=== PATIENT | female | born 1965 ===

== ENCOUNTER 2024-09-08 15:30 | Outpatient (REF) | payer BC, SELFPAY ==
--- OUTSIDE RECORDS SUMMARY | 2024-09-08 15:32 | XMS_ITS | Encounter Summary ---
Author Organization [facility] Address [address] [place] [address] Care Team Providers Care Farm Technician Name Role Phone Ed Willson APRN Primary Care Provider [phone] Reason for Visit * Reason Onset Date Comments Orders (Non Pre-visit) 10/14/2023 Encounter Details Date Type Department Care Team (Late st Contact Info) Description 10/14/2023 Telephone [facility] Endocrinology - [address] [address] Justin Alvarado MD [address] [place] [phone] Orders (Non Pre-visit) Social History Tobacco Use Types Packs/Day Years Used Date Smoking Tobacco: Never Smokeless Tobacco: Never Comments Unknown Sex and Gender Information Value Date Recorded Sex Assigned at Not on file Legal Sex Female 18:48 EST Gender Identity Female 10/13/2023 11:04 EST Sexual Orientation Not on file documented as of this encounter Functional Status * Because of a physical, mental, or emotional condition, does this person have difficulty doing errands alone such as visiting a doctor's office or shopping? Answer Date of Assessment Author No 10/13/2023 15:53 EST documented as of this encounter Mental Status * Because of a physical, mental, or emotional condition, does this person have serious difficulty concentrating, remembering, or making decisions? Answer Entry Date Author No 10/13/2023 15:53 EST documented in this encounter Miscellaneous Notes * Telephone Encounter - Mary Jane Robertson RN - 10/22/2023 0848 EDT SW patient to relay - Dr. Alvarado reviewed thyroid imaging patient had done last year - Patient does not need a repeat ultrasound done this year. - Patient can discuss with primary care physician and consider repeating in 2 years from last ultrasound. - No need to follow up with Dr. Alvarado at this time. Patient v/u and agreed to plan. MARY JANE ROBERTSON RN 10/22/2023 8:53 * Telephone Encounter - Mary Jane Robertson RN - 10/22/2023 0833 EDT Images from the original note were not included. Call to [facility] radiology. No answer. Left VM canceling order for thyroid U/S Dr. Alvarado had ordered. Call back number provided. [facility] 10/22/23 Plan: - Thyroid US - TSH, FT4 today - Follow up with primary care - I will chart check for results. Will follow-up if further workup is needed. Otherwise will discharge back to primary care provider. After careful review of the patient???s history under my care and discussion with the patient, we decided that Denise Best no longer requires routine follow up care in this office. If the patienthas worsening of symptoms, please reach out directly to me, or in my absence, to one of my colleagues. My recommendations are: Treatment Plan: If TSH is high, consideration for treatment with levothyroxine and monitoring TSH, target within normal range; will decide after reviewing labs. Will contact patient if any evidence of thyroid disorder. Call to patient. No answer. No ID. LMTCB When patient calls back: - Dr. Alvarado reviewed thyroid imaging patient had done last year - Patient does not need a repeat ultrasound done this year. - Patient can discuss with primary care physician and consider repeating in 2 years from last ultrasound. - No need to follow up with Dr. Alvarado at this time. MARY JANE ROBERTSON RN 10/22/2023 8:38 * Telephone Encounter - Mary Jane Robertson RN - 10/16/2023 1506 EST Animal Biologist not able to locate records from imaging done of thyroid last year. [facility] imaging department images and report from thyroid imaging done last year at [facility] will be sent to the hospital library and then when it is uploaded endo will be able to view it on [employer]. Routing to MANDY ruiz and Dr. Alvarado. MARY JANE ROBERTSON RN 10/16/2023 15:09 * Telephone Encounter - Keisha Dewey - 10/16/2023 1400 EST [facility] Imaging Dept calling again. Please see previous note below. * Telephone Encounter - Missy Blanchard - 10/14/2023 1136 EST [facility] states an order for thyroid ultrasound was received stating ultrasound not done in years. [place] states patient had thyroid ultrasound and CT scan done last year at [facility]. Does Dr. Alvarado still want to a new thyroid ultrasound. documented in this encounter Plan of Treatment Not on file documented as of this encounter Visit Diagnoses Not on filedocumented in this encounter Care Teams Farm Technician Relationship Specialty Start Date End Date Ed Willson APRN [address] [place] [address] [address] [place] [address] PCP - General 10/13/23 documented as of this encounter
--- OUTSIDE RECORDS SUMMARY | 2024-09-08 15:32 | XMS_ITS | Encounter Summary ---
Author Organization [facility] [place] [address] Care Team Providers Care Residential Sales Consultant Name Role Phone AnamikaEd SUZANNE Primary Care Provider [phone] Reason for Visit * Reason Comments Thyroid Nodule Encounter Details Date Type Department Care Team (Late st Contact Info) Description 08/29/2011 9:00 AM EST Office [place] [phone] Rafael Stevens MD Thyroid nodule; Neck pain Discharge Disposition: Home Social History Tobacco Use Types Packs/Day Years Used Date Smoking Tobacco: Never Sex and Gender Information Value Date Recorded Sex Assigned at Not on file Gender Identity Not on file Sexual Orientation Not on file documented as of this encounter Progress Notes * Rafael Stevens MD - 08/29/2011 9:59 AM EST Patient seen in consultation at the request of: Ed Willson NP Reason for consult: Thyroid nodule Denise Best is a very pleasant 46 y.o. year old female who has been complaining of about 3 - 4 months of bilateral neck achiness and tenderness. She indicates the course of her bilateral sternocleidomastoids from about level III to the mastoid when describing her symptom. As part of the evaluation of this, a neck ultrasound was obtained and this revealed a small, vascular nodule. Apparently the virtual radiologist suggested an FNA, but the local radiologist wanted instead to observe it. She has no prior history of thyroid disease. History of H+N XRT exposure: No Family history of thyroid cancer: No Thyroid Compressive symptoms: Globus sensation: No Dysphagia: No Dysphonia: No Dyspnea: No Symptoms of thyroid hormone excess / deficiency Heat intolerance: No Cold intolerance: No Diarrhea: No Constipation: No Weight loss / gain: No Anxiety: No Jitteriness: No Temors: No Palpitations: No Difficulty concentrating: No TSH 0.63 Patient Active Problem List Diagnoses Code ??? Thyroid nodule 241.0B ??? 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 All other systems negative. Physical Exam GEN: A+O 3; WDWN; Comfortable; Mood and affect appropriate. EYES: SIERRA; No stare, no lid lag, no conjunctival injection NECK: Trachea midline, no neck masses; Thyroid not enlarged; Non-nodular; Thyroid is not tender; There is no cervical lymphadenopathy CHEST: Clear to auscultation; No dullness to percussion CV: Regular rate and rhythm; No murmurs rubs or gallops; no peripheral edema ABD: Soft and non-tender; No masses notes MSK: Normal gait and station; No clubbing or cyanosis of digits SKIN: Intact without lesions or rashes NEURO: CN II-XII grossly intact with normal coordination, muscle strength and tone; No tremor of outstretched hands; DTRs 1+ w/ normal relaxation phase THYROID ULTRASOUND: Indication: Thyroid nodule on prior study; Considering FNA - clarify size, position and US characteristics Date: 08/29/2011 Comparison: Real time images of the thyroid gland were obtained using a [employer] TV[employer] and an HFL38/13-6 broadband linear array transducer. Right Lobe: The right lobe is of normal size and echotexture. Left Lobe: The left lobe is of normal size and echotexture. There are two small hypoechoic nodules abutting one another in the medial midlobe. Together, the give the impression (in some imaging planes) of being a single, larger nodule. From superior to inferior: - 0.24x0.3x0.45cm - 0.4x0.5x0.66cm. This nodule is moderately vascular There are no intranodular calcifications in either nodule ASSESSMENT / PLAN: 1. Thyroid Nodule Two subcentimeter nodules. One is vascular, but otherwise there are no high risk US features. I discussed with her the prevalence of thyroid nodules: Approximately 5% of individuals have palpable thyroid nodules and 30% or more of adults have non- palpable nodules. The prevalence of nodules increases with age, so that perhaps 50% of individuals older than 60 years of age have nodules. Many of these nodules will be well under 1cm in size. The incidence of thyroid cancer is low, but rising. About 44,700 individuals will be found to have thyroid cancer in 2009. The prevalence of thyroid cancer is low compared with the prevalence of thyroid nodule. In 2007, there were about 434,000 individuals in the [place] with a history of thyroid cancer. There have been a number of studies that have estimated risk of malignancy in thyroid nodule. The estimated risk varies with size and other characteristics of nodules selected for biopsy, the technique used for the biopsy, the institution and its referral patterns, and the characteristics of the local population. Most studies have estimated malignancy risk in nodules that are palpable or > 1cmon U/S to be in the range of 3-15%. At [facility], the nodules selected for biopsy are histologically positive in about 7% of cases. In general, options for further evaluation include: - Follow with serial U/S - Fine needle aspiration biopsy - Thyroidectomy At [facility], our criteria for FNA biopsy includes: - All palpable nodules - All nodules > 1cm in two or more dimension - Nodules > 8-9mm in two or more dimensions with high risk sonographic features, or occuring in patients with high risk historical features - Nodules that have been previously biopsied and found to have benign cytology but which have subsequently enlarged or changed significantly - Simple cysts do not require FNA biopsy Nodules not meeting the above criteria can generally be followed with ultrasound. Her nodule(s) do not meet the above criteria. I therefore concur that observation is a reasonable, and probably, best option. Plan: She will f/u with me in 1 year for a repeat US. In the event of significant growth of the vascular nodule, we will do an FNA. 2. Neck Pain Her neck pain is lateral - along the course of the bilateral SCMs - not particularly close to her thyroid. Her thyroid is not tender, not is there any sonographic changes in the thyroid parenchyma c/w subacute thyroiditis. In addition, she is euthyroid. Her neck pain is probably myofascial in nature and is certainly unrelated to her thyroid. . documented in this encounter Plan of Treatment Upcoming Encounters Date Type Department Care Team (Late st Contact Info) Description 09/22/2024 8:20 AM EST Office Visit Dermatology at [facility] [address] [place] [address] documented as of this encounter Visit Diagnoses Diagnosis Thyroid nodule Nontoxic uninodular goiter Neck pain Cervicalgia documented in this encounter Care Teams Residential Sales Consultant Relationship Specialty Start Date End Date Ed Willson APRN [address] [place] [address] [place] [phone] PCP - General 08/20/11 documented as of this encounter
--- OUTSIDE RECORDS SUMMARY | 2024-09-08 15:32 | XMS_ITS | Encounter Summary ---
Author Organization [facility] Address [address] [place] [address] Care Team Providers Care Investment Manager Name Role Phone Unknown, Provider Primary Care Provider Ed Yin APRN Primary Care Provider [phone] Reason for Visit * Reason Onset Date Comments Appointment Related 07/16/2023 Encounter Details Date Type Department Care Team (Late st Contact Info) Description 07/16/2023 Telephone [facility] Endocrinology - [facility] [address] [place], [place] [id number] Lincoln Ding MD [address] [place] [address] Appointment Related Social History Tobacco Use Types Packs/Day Years Used Date Smoking Tobacco: Never Assessed Comments Unknown Sex and Gender Information Value Date Recorded Sex Assigned at Not on file Legal Sex Female 18:48 EST Gender Identity Female 10/13/2023 11:04 EST Sexual Orientation Not on file documented as of this encounter Miscellaneous Notes * Telephone Encounter - Lucinda Mahajan - 07/16/2023 1124 EST Left voicemail to reschedule 08-14-[address] Ding due to the provider having surgery. PASC: Please reschedule for next available NPV with a Thyroid provider, NPV guidelines. documented in this encounter Plan of Treatment Not on file documented as of this encounter Visit Diagnoses Not on filedocumented in this encounter Care Teams Investment Manager Relationship Specialty Start Date End Date Unknown, Provider, PCP - General 11/15/09 10/12/23 Ed Willson APRN [address] [place] [address] [address] [place] [address] PCP - General 10/13/23 documented as of this encounter
--- OUTSIDE RECORDS SUMMARY | 2024-09-08 15:32 | XMS_ITS | Encounter Summary ---
Author Organization [facility] Address [address] [place] [address] Care Team Providers Care Carpenter Refrigerator Name Role Phone Ed Willson APRN Primary Care Provider [phone] Reason for Visit * Reason Onset Date Comments Erroneous Encounter 12/18/2023 Encounter Details Date Type Department Care Team (Late st Contact Info) Description 12/18/2023 Telephone [facility] [address] [place], [place] [phone] None, Provider Erroneous Encounter Social History Tobacco Use Types Packs/Day Years [...] 10/13/2023 15:53 EST documented in this encounter Plan of Treatment Not on file documented as of this encounter Visit Diagnoses Not on filedocumented in this encounter Care Teams Carpenter Refrigerator Relationship Specialty Start Date End Date Ed Willson APRN [address] [place] [address] [address] [place] [address] PCP - General 10/13/23 documented as of this encounter
--- OUTSIDE RECORDS SUMMARY | 2024-09-08 15:32 | XMS_ITS | Encounter Summary ---
Author Organization [facility] Address [address] [place] [address] Care Team Providers Care Yoga Instructor Name Role Phone Unknown, Provider Primary Care Provider Unava ilable Reason for Referral * (Routine/Next Available) - Receiving Office to Obtain Authorization Specialty Diagnoses / Procedures Referred By Contac t Referred To Contact Procedures CT OUTSIDE IMAGES NECK Unknown, Provider, Referral ID Status Reason Start Date Expiration Date Visits Requested Visits Authorized [id number] Receiving Office to Obtain Authorization 10/21/2023 1 1 Reason for Visit * (Routine/Next Available) - Receiving Office to Obtain Authorization Specialty Diagnoses / Procedures Referred By Contac t Referred To Contact Procedures CT OUTSIDE IMAGES NECK Unknown, Provider, Referral ID Status Reason Start Date Expiration Date Visits Requested Visits Authorized [id number] Receiving Office to Obtain Authorization 10/21/2023 1 1 Encounter Details Date Type Department Care Team (Latest Contact Info) Description 02/10/2023 - 02/10/2023 23:59 EDT Hospital Encounter [facility] [place] Discharge Disposition: Home or Self Care Social History Tobacco Use Types Packs/Day Years Used Date Smoking Tobacco: Never Assessed Comments Unknown Sex and Gender Information Value Date Recorded Sex Assigned at Not on file Legal Sex Female 18:48 EST Gender Identity Female 10/13/2023 11:04 EST Sexual Orientation Not on file documented as of this encounter Medications at Time of Discharge LORazepam (ATIVAN) 0.5 mg tablet Take 1 Tablet by mouth every 8 hours as needed for Anxiety. 10/26/2022 documented as of this encounter Discharge Disposition Disposition Code Departure Means Destination Home or Self Care documented in this encounter Plan of Treatment Not on file documented as of this encounter Procedures Procedure Name Priority Date/Time Associated Diagnosis Comments CT OUTSIDE IMAGES NECK Routine 02/10/2023 15:31 EDT documented in this encounter Results * CT OUTSIDE IMAGES NECK (02/10/2023 15:31 EDT) Narrative 10/21/2023 15:31 EDT This is a non-reportable exam. us Provider Unknown IMTeri OTHER IMAGING ORDERABLES Final Result documented in this encounter Visit Diagnoses Not on filedocumented in this encounter Care Teams Yoga Instructor Relationship Specialty Start Date End Date Unknown, Provider, PCP - General 11/15/09 10/12/23 documented as of this encounter
--- OUTSIDE RECORDS SUMMARY | 2024-09-08 15:32 | XMS_ITS | Encounter Summary ---
Author Organization [facility] Address [address] [place] [address] Care Team Providers Care Cash Specialist Name Role Phone Ed Willson APRN Primary Care Provider Reason for Referral * Radiology Services (Routine/Next Available) - Specialty Report Received Specialty Diagnoses / Procedures Referred By Chela huizar Referred To Contact Diagnoses Thyroid nodule Procedures US THYROID/NECK US THYROID/NECK Yair Rodríguez MD Referral ID Status Reason Start Date Expiration Date V isits Requested Visits Authorized [id number] Specialty Report Received 10/13/2023 1 1 Reason for Visit * Reason Comments Other NPV - abnormal findi ngs of blood chemistry * Referral (Routine) - Receiving Office to Obtain Authorization Specialty Diagnoses / Procedures Referred By Chela huizar Referred To Contact Endocrinology Diagnoses Other specified abnormal findings of blood chemistry Ed Willson APRN [address] [place] [address] [address] [place] [address] Phone: tel: fax: [address] [address] Phone: tel: fax: Referral ID Status Reason Start Date Expiration Date Visits Requested Visits Authorized [id number] Receiving Office to Obtain Authorization 1 1 Encounter Details Date Type Department Care Team (Latest Contact Info) Description 10/13/2023 16:00 EST Office Visit [address] [address] Justin Alvarado MD [address] [place] [phone] Thyroid nodule (Primary Dx) Social History Tobacco Use Types Packs/Day Years Used Date Smoking Tobacco: Never Smokeless Tobacco: Never Comments Unknown Sex and Gender Information Value Date Recorded Sex Assigned at Not on file Legal Sex Female 18:48 EST Gender Identity Female 10/13/2023 11:04 EST Sexual Orientation Not on file documented as of this encounter Last Filed Vital Signs Vital Sign Reading Time Taken Comments Blood Pressure 119/79 10/13/2023 1557 EST Pulse 87 10/13/2023 1557 EST Temperature - - Respiratory Rate - - Oxygen Saturation - - Inhaled Oxygen Concentration - - Weight 84.8 kg (186 lb 14.4 oz) 10/13/2023 1557 EST Height 177.8 cm (5' 10) 10/13/2023 1557 EST Body Mass Index 26.82 10/13/2023 1557 EST documented in this encounter Functional Status * Because of [...] 10/13/2023 15:53 EST documented in this encounter Patient Instructions * Patient Instructions* Justin Alvarado MD - 10/13/2023 16:00 EST - Thyroid US - TSH, FT4 today - Follow up with primary care documented in this encounter Progress Notes * Justin Alvarado MD - 10/13/2023 1600 EST Reason for referral: Neck mass History: 58-year-old female was assessed in endocrinology clinic, query thyroid issues at the request of Ed Willson APRN. She has been experiencing small mass, soft, at the sternal notch and some fullness on the lateral aspect of her neck with moving her hands and finding that the neckline on her shirt are tighter. She was seen by her primary care doctor, CT scan of the neck was obtained with contrast and was told that this was normal. We do not have the results of the CT scan in clinic today. However referral was made to endocrinology to rule out any thyroid disorders. She has history of thyroid nodule subcentimeter and was seen at [facility] back in 2011. Since then has not had any repeated imaging. She was adopted, but mother had hypothyroidism. Her TPO was positive with her primary care (we do not have these results), and her free T3 is at 5.1 on September 12, 2023. She has had some symptoms of weight gain, constipation however no heat or cold intolerance. Has not had any symptoms of dysphagia, dyne aphasia, changes in voice. Past medical history: -Anxiety Past surgical history: -None Social history: -No history of tobacco use -No polysubstance use -1-2 drinks per week Family history: -Adopted. Mother with thyroid disorder, cervical cancer. Medications: -Citalopram 20 mg daily -Lorazepam 0.5 mg as needed -Multivitamins Review of systems: Negative unless noted above Exam: Patient Vitals for the past 24 hrs: BP Pulse Height Weight 10/13/23 1557 119/79 87 177.8 cm (70) 84.8 kg (186 lb 14.4 oz) Appropriate for stated age, no acute distress Normocephalic, atraumatic, PERRLA, EOMI. Soft mass, mobile noted anterior to sternal notch; not attached to thyroid gland. Ultrasound of the thyroid gland was performed in the clinic, query pseudo nodules involving bilateral lobes; no extrathyroidal tissue noted. Alert and oriented x 3 Labs and imaging: All reviewed in the electronic medical record system. Please see scanned documents for referral attachments. There was no documentation of imaging. TPO antibody, was reported by patient. T3 in the system. Impression: Denise Best was seen in endocrinology clinic today for assessment of possible thyroid disorder. I reviewed physiology/pathophysiology of thyroid disorder with patient at length. All her questionswere answered to her satisfaction. Thyroid ultrasound in clinic with pseudo nodules involving bilateral lobes. No extrathyroidal tissue involvement. Reassurance provided that the mass at the sternal notch is not connected to the thyroid gland, unlikely to be a thyroid pathology. For completion, since she has had history of nodules in the past, we will obtain formal thyroid ultrasound. Will also check her thyroid function tests in light of positive TPO. If TSH is elevated, consideration can be made for treatment; this can be initiated by her primary care doctor. Discussed rational for clinical decision making, workup with patient. Has elected to proceed with above. I am not sure what the mass/fullness of her lateral neck is from. We do not have the CT scan results, but would defer back to primary with consideration for referral to general surgery if consistent with lipoma. Plan: - Thyroid US - TSH, FT4 [...] patient if any evidence of thyroid disorder. Medications: none What to expect/monitor: TSH, yearly. When to refer back: If TSH > 10, concerns with thyroid function. Discussed with Dr. Rodríguez. I spent a total of 45 minutes on the date of this encounter meeting with the patient and reviewing documentation/coordinating care as described in the above note. No procedures were performed at the time of the visit. * Yair Rodríguez MD - 10/13/2023 1600 EST Attestation: I performed or was present during the najera or critical portions of the visit and participated in the management of the patient on 10/13/2023. I agree with the findings and plan of care as documented in the resident's/fellow's note. Yair Rodríguez MD 10/14/2023 6:49 documented in this encounter Plan of Treatment Scheduled Orders Name Type Priority Associated Diagnoses Orde r Schedule TSH Lab Routine Thyroid nodule Expected: 10/13/2023 (Approximate), Expires: 10/12/2024 T4 FREE Lab Routine Thyroid nodule Expected: 10/13/2023 (Approximate), Expires: 10/12/2024 US THYROID/NECK Imaging Routine Thyroid nodule 1 Occurrences starting 10/13/2023 until 04/14/2025 documented as of this encounter Visit Diagnoses Diagnosis Thyroid nodule- Primary Nontoxic uninodular goiter documented in this encounter Historical Medications * This list may reflect changes made after this encounter. LORazepam (ATIVAN) 0.5 mg tablet Take 1 Tablet by mouth every 8 hours as needed for Anxiety. 10/26/2022 lisinopril (PRINIVIL) 2.5 mg tablet Take 2 Tablets by mouth 2 times daily. 09/06/2023 citalopram (CELEXA) 20 mg tablet Take 1 Tablet by mouth daily. 07/19/2023 added in this encounter Care Teams Cash Specialist Relationship Specialty Start Date End Date Ed Willson APRN [address] [place] [address] DR [address] [place] [id number] PCP - General 10/13/23 documented as of this encounter
--- OUTSIDE RECORDS SUMMARY | 2024-09-08 15:32 | XMS_ITS | Encounter Summary ---
Author Organization [facility] Address [address] [place] [address] Care Team Providers Care Tariff Counsel Name Role Phone Unknown, Provider Primary Care Provider Ed Yin APRN Primary Care Provider Encounter Details Date Type Department Care Team (Latest Contact Info) Description 01/31/[address] [facility] Pathology & Laboratory Medicine - [facility] [address] [place] [address] Cody Perez MD [address] [place] [phone] Encounter for screening for human papillomavirus (HPV); Encounter for gynecological examination (general) (routine) without abnormal findings Social History Tobacco Use Types Packs/Day Years Used Date Smoking Tobacco: Never Assessed Comments Unknown Sex and Gender Information Value Date Recorded Sex Assigned at Not on file Legal Sex Female 18:48 EST Gender Identity Female 10/13/2023 11:04 EST Sexual Orientation Not on file documented as of this encounter Plan of Treatment Not on file documented as of this encounter Procedures Procedure Name Priority Date/Time Associated Diagnosis Comments PAP TEST Today 01/31/2023 16:25 EDT HPV DNA DETECTION WITH GENOTYPING, PCR Today 01/31/2023 16:25 EDT documented in this encounter Results * HUMAN PAPILLOMAVIRUS (HPV) DETECTION-HIGH RISK TYPES (01/31/2023 16:25 EDT) HPV other High Risk types, PCR Negative Negative 02/18/2023 15:45 [facility] Comment:No E6 or E7 mRNA is detected from HPV types 16,18,31,33,35,39,45,51,52,56,58,59,66, and 68 by copper etcher mediated amplification. Papanicolaou smear specimen (specimen) CERVIX UTERI STRUCTURE / Unknown 01/31/2023 16:25 EDT 02/17/2023 11:06 EDT us Cody Perez MD MICROBIOLOGY - GENERAL ORDERABLE S Final Result [facility] [address] [place] [id number] * PAP TEST (01/31/2023 16:25 EDT) Specimens A. Cervix and/or Endocervix , ThinPrep Imaging System with Manual Evaluation 02/18/2023 15:45 [facility] Specimen Adequacy Satisfactory for Evaluation - assessment of transformation zone component not applicable ( e.g. atrophy, vaginal sample, hysterectomy) 02/18/2023 15:45 [facility] General Categorization Negative for intraepithelial lesion or malignancy 02/18/2023 15:45 [facility] Attestation . 02/18/2023 15:45 [facility] at 1545 Clinical History See below 02/19/20 15:45 [facility] HPV The result for the Human Papillomavirus (HPV) Detection-High Risk Types is Negative. No E6 or E7 mRNA is detected from HPV types 16,18,31,33,35,39 ,45,51,52,56,58,5 9,66, and 68 by copper etcher mediated amplification.Judi ting was performed on specimen [id number] and was resulted on 02/18/2023 1545 EDT by KIEL, LAB INSTRUMENT RESULTS IN 02/18/2023 15:45 [facility] Performing Lab [facility] 02/18/2023 15:45 EDT [facility] Scanned Images 02/18/2023 15:45 EDT [facility] Papanicolaou smear specimen (specimen) CERVIX UTERI STRUCTURE / Unknown 01/31/2023 16:25 EDT 02/03/2023 9:24 EDT us Cody Perez MD PATHOLOGY ORDERABLES Final Resul t [facility] [address] [place] [address] documented in this encounter Visit Diagnoses Diagnosis Encounter for screening for human papillomavirus (HPV) Special screening examination for human papillomavirus (HPV) Encounter for gynecological examination (general) (routine) without abnormal findings documented in this encounter Care Teams Tariff Counsel Relationship Specialty Start Date End Date Unknown, Provider, PCP - General 11/15/09 10/12/23 Ed Willosn, DESIZING MACHINE OPERATOR HEAD END [address] [place] [address] [address] [place], [place] [address] PCP - General 10/13/23 documented as of this encounter
--- OUTSIDE RECORDS SUMMARY | 2024-09-08 15:32 | XMS_ITS | Encounter Summary ---
Author Organization [facility] Address [address] [place] [address] Care Team Providers Care Arch Pad Cementer Name Role Phone Unknown, Provider Primary Care Provider Hanh aguirre Encounter Details Date Type Department Care Team (Late st Contact Info) Description 03/06/2015 Results Only [facility] [phone] Reji Osuna, FINISHED CLOTH EXAMINER [address] [place] [address] [address] [place] [address] Social History Tobacco Use Types Packs/Day Years [...] Name Priority Date/Time Associated Diagnosis Comments PAP TEST- RESULT ONLY Routine 03/06/2015 0:00 EDT documented in this encounter Results * PAP TEST- RESULT ONLY (03/06/2015 0:00 EDT) Pathology Report: CYTOPATHOLOGY REPORT Reports generated via electronic interface contain original data; however they are lacking the format of the original report. Caution should be taken when reading/interpreti ng unformatted reports. Name: ? DENISE ORELLANA ? Accession #: ? [id number] ? : ? 1965 (Age: 50) ??F ?Collect Date: ? 03/06/2015 ? Location: ? [facility] ? Receive Date: ? 03/07/2015 ? Provider: REJI OSUNA NP Copy to: ? Final Report SPECIMEN ADEQUACY ? Satisfactory for Evaluation - transformation zone component present GENERAL CATEGORIZATION ? Other, see interpretation INTERPRETATION ? Endometrial cells present in a woman equal to or greater than age 45. Negative for Intraepithelial Lesion. EDUCATIONAL NOTES/RECOMMENDATI ONS ? ASCCP management guidelines advises using histologic endometrial assessment only in postmenopausal women. Benign appearing endometrial cells on Pap tests are usually a normal finding in women with regular menstrual cycles, especially if the Pap test was collected during the first half of the menstrual cycle. There is data showing that endometrial cells on Pap tests may be associated with endometrial/uterin e abnormalities in post menopausal women or in perimenopausal women with abnormal bleeding. There is limited data on the significance of benign endometrial cells in post menopausal women on HRT. ??Clinical correlation is recommended. Note: ??The Pap test is not an accurate test for the screening of endometrial lesions and should not be used as a follow up in patients with clinical suspicion of endometrial pathology. Last Menstrual Period: 03/01/15 Previous Gynecologic Pathology: LSIL: LGSIL 2004 Other: Additional clinical information: all normal since 2004 Specimen/Source: ??Pap Test, Cervix/Endocervix, ThinPrep Imaging System with manual evaluation Document reviewed and electronically signed by: ? MARCY JACKSON MD ? Report ??Date: 03/15/2015 08:09 HPV with Pap Test ? Date Ordered: ? 03/14/2015 ? Status: ?? Signed Out ?Date Complete: ? 03/17/2015 ? By: ??System Interface ? Date Reported: ? 03/17/2015 ? Interpretation RESULT: Negative for HPV. No E6 or E7 mRNA is detected from HPV types 16,18,31,33,35, 39,45,51,52,56,58, 59,66, and 68 by oceanic sciences professor mediated amplification. Comments Document reviewed and electronically signed by: ? System Interface ? Report date: 03/17/2015 By the signature above, the attending physician certifies that he/she has personally conducted a gross and/or microscopic examination of the described specimens and rendered or confirmed the above diagnosis. End of Report [facility] 03/06/2015 03/07/2015 us Reji Osuna APRN PATHOLOGY ORDERABLES Final Resu lt [facility] [address] [place] [address] documented in this encounter Visit Diagnoses Not on filedocumented in this encounter Care Teams Arch Pad Cementer Relationship Specialty Start Date End Date Unknown, Provider, PCP - General 11/15/09 10/12/23 documented as of this encounter
--- OUTSIDE RECORDS SUMMARY | 2024-09-08 15:32 | XMS_ITS | Encounter Summary ---
[place] [address] Care Team Providers Care Delivery Aide Name Role Phone Reji Osuna APRN Primary Care Provider [phone] Reason for Visit * Reason Comments Vaginal Bleeding * Consultation (Routine) - Closed Specialty Diagnoses / Procedures Referred By Contac t Referred To Contact Obstetrics and Gynecology Diagnoses abnormal uterine bleeding Reji Osuna APRN [address] [place] [address] [place] [address] [facility] [address] [place] [phone] Referral ID Status Reason Start Date Expiration Date V isits Requested Visits Authorized [id number] Closed Connection Center 12/12/2015 12/11/2016 1 1 Encounter Details Date Type Department Care Team (Late st Contact Info) Description 12/22/2015 9:00 AM EDT Office Visit Obstetrics [place] [phone] Tierney Alves MD Endometriosis; Pelvic pain Social History Tobacco Use Types Packs/Day Years Used Date Smoking Tobacco: Never Alcohol Use Standard Drinks/Week Comments Yes 2 (1 standard drink = 0.6 oz pur e alcohol) Sex and Gender Information Value Date Recorded Sex Assigned at Not on file Gender Identity Not on file Sexual Orientation Not on file documented as of this encounter Last Filed Vital Signs Vital Sign Reading Time Taken Comments Blood Pressure 118/78 12/22/2015 8:53 AM EDT Pulse - - Temperature - - Respiratory Rate - - Oxygen Saturation - - Inhaled Oxygen Concentration - - Weight 69.2 kg (152 lb 9.6 oz) 12/22/2015 8:53 A M EDT Height - - Body Mass Index - - documented in this encounter Progress Notes * Rosalind Cabrera MD - 12/22/2015 1:50 PM EDT The case was discussed at the time of the visit or immediately after the visit. The assessment and plan were formulated in discussion with me and I agree with them as documented. I have reviewed the history, physical exam, assessment and plan with the resident. * Tierney Alves MD - 12/22/2015 9:02 AM EDT New Patient Consult Patient Name: Denise Orellana Date of : 1965 Referring Provider: REJI OSUNA APRN Date of Visit: 1:08 PM Patient Active Problem List Diagnosis Code ??? Thyroid nodule E04.1 ??? Neck pain M54.2 ??? Pelvic pain R10.2 ??? Endometriosis N80.9 Referral Reason: Seeing Denise Orellana at the kind referral of Reji Osuna APRN for consultation regarding persistent menses s/p BSO Reason for Visit: DENISE ORELLANA is a 50 y.o. G0 female who has a history of pelvic pain and endometriosis who is s/p BSO who is interested in a second opinion regarding her peristent menses s/p BSO. Subjective: In the fall the patient had persistent pelvic pain and a left complex ovarian cyst. Sheunderwent a diagnostic laparoscopy, BSO, and fulguration of endometriosis in 05/2015. Findings in surgery included a complex of her left ovary, a simple cyst of her right ovary, and endometriosis implants in the cul-de-sac. She reports that in September her menses returned and was very heavy. She bled through her underwear and tampons. She has since had four menses and her last was 12/20/15. Her periods continue to be heavy, has worsened PMS symptoms (food cravings, breast tenderness), and uterine cramping that necessitates NSAIDs. Her pain is improved with NSAIDs, but doesn't make it go away entirely. She reports that her doctor initially recommended an endometrial biopsy and medical management of her bleeding. Medical management discussed was the use of OCPs, or Mirena IUD to control her menses, but since she wasn't interested in those options. She is currently scheduled for a pelvic laparoscopy or hysterectomy. OB History Para Term AB TAB SAB Ectopic Multiple Living 0 0 0 0 0 0 0 0 0 0 Past Food And Beverage Controller Hx: LMP Patient's last menstrual period was 12/20/2015. Menstrual cycle every 28 days. Last PAP 05/2015 which showed endometrial cells and she underwent an attempted EMB and Ultrasound. She then saw the complex ovarian cyst and then the plan was for a laparoscopy and D&C. Past Medical History Diagnosis Date ??? Anxiety ??? Knee pain ??? Endometriosis ??? Pelvic pain Past Surgical History Procedure Laterality Date ??? Anterior cruciate ligament repair ??? Pelvic laparoscopy 05/2015 BSO Family History Problem Relation Age of Onset ??? Cervical Cancer Mother Social Hx: History Social History ??? Marital Status: Civil Union Spouse Name: N/A Number of Children: N/A ??? Years of Education: N/A Occupational History ??? Not on file. Social History Main Topics ??? Smoking status: Never Smoker ??? Smokeless tobacco: Not on file ??? Alcohol Use: 1.2 oz/week 2 Standard drinks or equivalent per week ??? Drug Use: No ??? Sexual Activity: Partners: Female Other Topics Concern ??? 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 ROS: Constitutional: No fevers/chills, fatigue, dizziness Neuro: No headache, vision change Cardiac: No chest pain, palpitations Respiratory: No cough, wheeze, shortness of breath Gastrointestinal: No abdominal pain, nausea/vomiting, diarrhea/constipation Genitourinary: No dysuria, urinary frequency, vaginal bleeding, change in vaginal discharge MSK: No muscle/joint aches Psych: depression/anxiety Allergies Allergen Reactions ??? Pcn [Penicillins] Rash Perioral redness, no shortness of breath or hives Objective: BP 118/78 mmHg Wt 69.219 kg (152 lb 9.6 oz) LMP 12/20/2015 Physical Examination: General appearance - alert, well appearing, and in no distress Chest - clear to auscultation, no wheezes, rales or rhonchi, symmetric air entry Heart - normal rate, regular rhythm, normal S1, S2, no murmurs, rubs, clicks or gallops Abdomen - soft, nontender, nondistended, no masses or organomegaly Pelvic - VULVA: normal appearing vulva with no masses, tenderness or lesions, VAGINA: normal appearing vagina with normal color and discharge, no lesions, CERVIX: normal appearing cervix with small amount of blood at os UTERUS: uterus is normal size, shape, consistency and nontender, anteverted ADNEXA: 2-3cm pelvic mass palpated on left side, tender, immobile Extremities: No BARRY Labs: None Assessment/Plan: Denise Orellana is a 50 y.o. who presents to discuss management of her persistent menses s/p laparoscopic BSO. Discussed that this is most likely secondary to persistent ovariantissue. Since she has already had an endometrial biopsy which showed benign proliferative endometrium and she has minimal risk factors for endometrial cancer, not concerned at this time. On pelvic exam there was a cystic feeling mass on the left side, potentially recurrent endometrioma. Recommendedfollow up US in [place]. Discussed that as long as she is not bothered by her dysmenorrhea or her menorrhagia she does not need medical management or surgical management at this time. Will call or return to care if she develops irregular bleeding, prolonged bleeding, anorexia, or weight loss. -F/u transvaginal US -Call or return to care with more irregular bleeding -Call or return to care if she desires medical treatment TIERNEY ALVES MD PGY3 12/22/2015 Pt was discussed with Dr. Rosalind Cabrera MD Thank you for kind referral of Denise Orellana documented in this encounter Plan of Treatment Upcoming Encounters Date Type Department Care Team (Late st Contact Info) Description 09/22/2024 8:20 AM EST Office Visit Dermatology at [facility] [address] [place] [phone] documented as of this encounter Visit Diagnoses Diagnosis Endometriosis Endometriosis, site unspecified Pelvic pain documented in this encounter Care Teams Delivery Aide Relationship Specialty Start Date End Date Reji Osuna APRN [address] [place] [address] [place] [phone] PCP - General 08/20/11 documented as of this encounter
--- OUTSIDE RECORDS SUMMARY | 2024-09-08 15:32 | XMS_ITS | Encounter Summary ---
Author Organization [facility] Address [address] [place] [address] Care Team Providers Care Finishing Manager Name Role Phone Unknown, Provider Primary Care Provider Ed Yin APRN Primary Care Provider [phone] Encounter Details Date Type Department Care Team (Late st Contact Info) Description 05/15/2023 Lab Requisition [facility] Pathology & Laboratory Medicine - [address] [address] Outr Resulting Lab, Provider Social History Tobacco Use Types Packs/Day Years [...] Procedure Name Priority Date/Time Associated Diagnosis Comments VITAMIN D (25,OH) Routine 05/15/2023 16: 10 EDT documented in this encounter Results * VITAMIN D (25,OH) (05/15/2023 16:10 EDT) 25OH Vitamin D Tot 34 30 - 100 ng/mL 05/19/2023 10:20 EDT [facility] Comment: Vitamin D 25,OH Interpretive Ranges: Deficiency: ??<10.0 ng/mL Insufficiency: ??10.0 - 30.0 ng/mL Sufficiency: ??30.0 - 100.0 ng/mL Toxicity: ??>100.0 ng/mL Blood VENOUS BLOOD / Unknown 05/15/2023 16:10 EDT 05/16/2023 22:09 EDT us Provider Outr Resulting Lab CHEMISTRY & BLOOD GA S ORDERABLES Final Result [facility] [address] [place] [address] documented in this encounter Visit Diagnoses Not on filedocumented in this encounter Care Teams Finishing Manager Relationship Specialty Start Date End Date Unknown, Provider, PCP - General 11/15/09 10/12/23 Ed Willson APRN [address] [place] [address] [address] [place] [address] PCP - General 10/13/23 documented as of this encounter
--- OUTSIDE RECORDS SUMMARY | 2024-09-08 15:32 | XMS_ITS | Encounter Summary ---
Author Organization [facility] Address [address] [place] [address] Care Team Providers Care Conference Services Manager Name Role Phone Unknown, Provider Primary Care Provider Unava ilable Encounter Details Date Type Department Care Team (Latest Contact Info) Description 05/19/2015 7:26 EDT - 05/19/2015 23:59 EDT Hospital Encounter [address] [address] Unknown, Provider, Discharge Disposition: Home or Self Care Social History Tobacco Use Types Packs/Day Years Used Date Smoking Tobacco: Never Assessed Comments Unknown Sex and Gender Information Value Date Recorded Sex Assigned at Not on file Legal Sex Female 18:48 EST Gender Identity Female 10/13/2023 11:04 EST Sexual Orientation Not on file documented as of this encounter Discharge Disposition Disposition Code Departure Means Destination Home or Self [facility] documented in this encounter Plan of Treatment Not on file documented as of this encounter Visit Diagnoses Not on filedocumented in this encounter Care Teams Conference Services Manager Relationship Specialty Start Date End Date Unknown, Provider, PCP - General 11/15/09 10/12/23 documented as of this encounter
--- OUTSIDE RECORDS SUMMARY | 2024-09-08 15:32 | XMS_ITS | Encounter Summary ---
Author Organization [facility] Address [address] [place] [address] Care Team Providers Care Railroad Yard Worker Name Role Phone Unknown, Provider Primary Care Provider Unava ilable Reason for Referral * (Routine/Next Available) - Receiving Office to Obtain Authorization Specialty Diagnoses / Procedures Referred By Contac t Referred To Contact Procedures US OUTSIDE IMAGES NEURO Unknown, ProviderMD Referral ID Status Reason Start Date Expiration Date Visits Requested Visits Authorized [id number] Receiving Office to Obtain Authorization 10/16/2023 1 1 Reason for Visit * (Routine/Next Available) - Receiving Office to Obtain Authorization Specialty Diagnoses / Procedures Referred By Contac t Referred To Contact Procedures US OUTSIDE IMAGES NEURO Unknown, Provider, MD Referral ID Status Reason Start Date Expiration Date Visits Requested Visits Authorized [id number] Receiving Office to Obtain Authorization 10/16/2023 1 1 Encounter Details Date Type Department Care Team (Latest Contact Info) Description 08/28/2022 - 08/28/2022 23:59 EST Hospital Encounter [facility] Secondary Read[place] Discharge Disposition: Home or [...] Procedure Name Priority Date/Time Associated Diagnosis Comments US OUTSIDE IMAGES NEURO Routine 08/28/2022 15:43 EST documented in this encounter Results * US OUTSIDE IMAGES NEURO (08/28/2022 15:43 EST) Narrative 10/16/2023 15:43 EST This is a non-reportable exam. us Provider Unknown IMTeri OTHER IMAGING ORDERABLES Final Result documented in this encounter Visit Diagnoses Not on filedocumented in this encounter Care Teams Railroad Yard Worker Relationship Specialty Start Date End Date Unknown, Provider, PCP - General 11/15/09 10/12/23 documented as of this encounter
--- OUTSIDE RECORDS SUMMARY | 2024-09-08 15:32 | XMS_ITS | Encounter Summary ---
Author Organization [facility] Address [address] [place] [address] Care Team Providers Care Medicinal Chemist Name Role Phone Unknown, Provider Primary Care Provider Ed Yin APRN Primary Care Provider [phone] Encounter Details Date Type Department Care Team (Late st Contact Info) Description 09/12/2023 Lab Requisition [facility] Pathology & Laboratory Medicine - [address] [address] Outr Resulting Lab, Provider Social History Tobacco [...] Procedure Name Priority Date/Time Associated Diagnosis Comments T3 FREE Routine 09/12/2023 14:46 EST documented in this encounter Results * T3 FREE (09/12/2023 14:46 EST) T3, Free 5.1 2.8 - 5.3 pg/mL 09/12/2023 22:30 EST [facility] Blood VENOUS BLOOD / Unknown 09/12/2023 14:46 EST 09/12/2023 21:57 EST us Provider Outr Resulting Lab CHEMISTRY & BLOOD GA S ORDERABLES Final Result [facility] [address] [place] [address] documented in this encounter Visit Diagnoses Not on filedocumented in this encounter Care Teams Medicinal Chemist Relationship Specialty Start Date End Date Unknown, Provider, PCP - General 11/15/09 10/12/23 Ed Willson APRN [address] [place] [address] [address] [place], [place] [id number] PCP - General 10/13/23 documented as of this encounter
--- OUTSIDE RECORDS SUMMARY | 2024-09-08 15:32 | XMS_ITS | Encounter Summary ---
Author Organization [facility] Address [address] [place] [address] Care Team Providers Care Labor Relations Supervisor Name Role Phone Unknown, Provider Primary Care Provider Ed Yin APRN Primary Care Provider [phone] Reason for Visit * Reason Onset Date Comments Appointment Related 05/14/2023 Encounter Details Date Type Department Care Team (Late st Contact Info) Description 05/14/2023 Telephone [facility] Endocrinology - [facility] [address] [place], [place] [id number] Lincoln Ding MD [address] [facility] [address] [place] [address] Appointment Related Social History Tobacco Use Types Packs/Day Years Used Date Smoking Tobacco: Never Assessed Comments Unknown Sex and Gender Information Value Date Recorded Sex Assigned at Not on file Legal Sex Female 18:48 EST Gender Identity Female 10/13/2023 11:04 EST Sexual Orientation Not on file documented as of this encounter Miscellaneous Notes * Telephone Encounter - Lucinda Mahajan - 05/14/2023 1136 EDT Left voicemail offering patient sooner appointment on 05-15-[address] Ding. [facility], if patient accepts appointment please schedule. If patient cannot accept sooner appointment, or if it is no longer available in [facility] please inform them we will continue to reach out as other openings become available documented in this encounter Plan of Treatment Not on file documented as of this encounter Visit Diagnoses Not on filedocumented in this encounter Care Teams Labor Relations Supervisor Relationship Specialty Start Date End Date Unknown, Provider, PCP - General 11/15/09 10/12/23 Ed Willson APRN [address] [place] [address] [address] [place] [address] PCP - General 10/13/23 documented as of this encounter
--- OUTSIDE RECORDS SUMMARY | 2024-09-08 15:32 | XMS_ITS | Encounter Summary ---
Author Organization [facility] Address [address] [place] [address] Care Team Providers Care Forest Fire Officer Name Role Phone Unknown, Provider Primary Care Provider Unava ilable Encounter Details Date Type Department Care Team (Late st Contact Info) Description 05/19/2015 Results Only [facility] [phone] Mary Perez MD [address] [place] [address] [address] [place] [address] Social History Tobacco Use Types [...] Procedure Name Priority Date/Time Associated Diagnosis Comments SURGICAL PATHOLOGY Routine 05/19/2015 9:15 EDT documented in this encounter Results * SURGICAL PATHOLOGY (05/19/2015 9:15 EDT) Pathology Report: SURGICAL PATHOLOGY REPORT Reports generated via electronic interface contain original data; however they are lacking the format of the original report. Caution should be taken when reading/interpreting unformatted reports. Name: ? DENISE ORELLANA ? Accession #: ? [id number] ? : ? 1965 (Age: 50) ??F ? Collect Date: ? 05/19/2015 ? Location: ? [facility] ? Receive Date: ? 05/20/2015 ? Provider: MARY PEREZ MD Copy to: ? Final Pathologic Diagnosis: ----- A. fallopian tube and ovary, left, salpingo-oophorectomy: - ??Ovary: ?? - ??Endometriotic cyst and endometriosis. ?? - ??Cystic follicle. - ??Fallopian tube: ?? - ??Tubo-ovarian adhesion. ?? - ??Walthard cell rest. B. fallopian tube and ovary, right, salpingo-oophorectomy: - ??Ovary: ?? - ??Endometriotic cyst. ?? - ??Hemorrhagic corpus luteum. ?? - ??Cystic follicle. - ??Fallopian tube: ?? - ??Endometriosis. ?? - ??Focal benign reactive epithelial hyperplasia. See comment. ?? - ??Benign paratubal cyst. ___ Comment: ----- Histologic sections of the right fallopian tube show a focal area of epithelial proliferation with mild stratification and some nuclear crowding. No significant nuclear atypia is identified. No mitotic figures are seen. This area is negative for p53 and shows minimally increased MIB-1 staining. The morphology and immunoprofile are consistent with reactive epithelial hyperplasia. Pit Hand slides were shown at our intradepartmental consensus conference. Immunohistochemical stains were performed on this case to further characterize the lesion. P-53 (Rabbit Monoclonal, clone SP5, Thermo Scientific) (B4): Negative MIB-1 (DAKO) (MIB-1, Dako) (B4): Minimally increased NOTE: ??One or more of the reagents used in immunohistochemical testing in this case may not have been cleared or approved by the U.S. Food and Drug Administration (FDA). ??The FDA has determined that such clearance or approval is not necessary. ??These tests are used for clinical purposes. ??They should not be regarded as investigational or for research. ??These reagents' performance characteristics have been determined by The . ??The positive and negative controls worked appropriately. This laboratory is certified under the Clinical Laboratory Improvement Amendments of 1988 (CLIA-88) as qualified to perform high complexity clinical laboratory testing. ?? ___ Document reviewed and electronically signed by: JENNA CASANOVA MD Report ??Date: 05/26/2015 18:20 By the signature above, the attending physician certifies that he/she has personally conducted a gross and/or microscopic examination of the described specimens and rendered or confirmed the above diagnosis. Specimen(s) Received: A. ?L tube/ovary B. ? R tube ovary Clinical History: Complex left ovarian cyst Gross Description: A. ?Received in formalin labelled with proper patient identification (initials B, C) and left tube and ovary is an intact ovary (2.3 x 2.0 x 1.0 cm) with attached fimbriated fallopian tube (5.2 cm in length x 0.4 cm in diameter) and a combined weight of 9.8 g. The ovary has a oliveira-white smooth capsule, and sectioning reveals a yellow and white cut surface with no discrete lesions present. The fallopian tube has a pink-oliveira glistening serosa and sectioning reveals a white cut surface with a pinpoint lumen throughout. Pit Hand sections are submitted as follows: BLOCK SIMPSON A1-A3- ??ovary A4- ??fallopian tube to include two cross sections and one half of the fimbria B. ?Received in formalin labelled with proper patient identification (initials B, C) and right tube and ovary is an intact ovary (3.4 x 3.0 x 1.6 cm) with attached fimbriated fallopian tube (5.5 cm in length x 0.5 cm in diameter) and a combined weight of 17.8 g. The ovary has a smooth pink-oliveira capsule, and sectioning reveals oliveira-callejas cut surface with an eccentric smooth wall 1.5 cm in greatest dimension cystic structure and a 1.7 cm greatest dimension hemorrhagic corpus luteal cyst. The fallopian tube has a pink-oliveira smooth serosa and sectioning reveals a white cut surface with a pinpoint lumen throughout. There is an attached 0.6 cm in diameter serous filled paratubal cyst. Pit Hand sections are submitted as follows: BLOCK SIMPSON B1-B3- ??ovary including smooth-walled cyst and hemorrhagic corpus luteum B4- ??fallopian tube including two cross sections and one half of the fimbria with paratubal cyst Leatha Miky 05/22/2015 11:12 AM End of Report [facility] 05/19/2015 9:15 EDT 05/20/2015 9:15 EDT us Mary Perez MD PATHOLOGY ORDERABLES Final Resul t [facility] [address] [place] [address] documented in this encounter Visit Diagnoses Not on filedocumented in this encounter Care Teams Forest Fire Officer Relationship Specialty Start Date End Date Unknown, Provider, PCP - General 11/15/09 10/12/23 documented as of this encounter
--- OUTSIDE RECORDS SUMMARY | 2024-09-08 15:32 | XMS_ITS | Encounter Summary ---
Author Organization [facility] [place] [address] Care Team Providers Care Grinder Operator Automatic Name Role Phone Ed Willson APRN Primary Care Provider [phone] Encounter Details Date Type Department Care Team (Late st Contact Info) Description 12/29/2015 - 12/29/2015 11:59 PM EDT Hospital Encounter Radiology Library at [place] [place] [address] [address] Baylee Lorenzana Pain Discharge Disposition: Home Social History Tobacco Use Types Packs/Day Years Used Date Smoking Tobacco: Never Alcohol Use Standard Drinks/Week Comments Yes 2 (1 standard drink = 0.6 oz pur e alcohol) Sex and Gender Information Value Date Recorded Sex Assigned at Not on file Gender Identity Not on file Sexual Orientation Not on file documented as of this encounter Plan of Treatment Upcoming Encounters Date Type Department Care Team (Late st Contact Info) Description 09/22/2024 8:20 AM EST Office Visit Dermatology at [facility] [address] [place] [address] documented as of this encounter Procedures Procedure Name Priority Date/Time Associated Diagnosis Comments FILM LIBRARY STORAGE ONLY ULTRASOUND STUDY Routine 12/29/2015 12:00 AM EDT Pain documented in this encounter Results * Film Library- Storage only Ultrasound Study (12/29/2015 12:00 AM EDT) Narrative [facility] - 01/01/2016 9:14 AM EDT This exam is for storage only and is auto-finalizing. Dr Baylee Lorenzana IMTeri FILM LIBRARY ORD ERABLES [place], [place] documented in this encounter Visit Diagnoses Diagnosis Pain Generalized pain documented in this encounter Care Teams Grinder Operator Automatic Relationship Specialty Start Date End Date Ed Willson APRN [address] [place] [address] PCP - General 08/20/11 documented as of this encounter
--- OUTSIDE RECORDS SUMMARY | 2024-09-08 15:32 | XMS_ITS | Referral Summary ---
Author Organization [facility] Address [address] [place] [address] Care Team Providers Care Antichecking Iron Worker Name Role Phone Ed Willson APRN Primary Care Provider [phone] Allergies No known active allergies Medications citalopram (CELEXA) 20 mg tablet Take 1 Tablet by mouth daily. 07/19/2023 Active lisinopril (PRINIVIL) 2.5 mg tablet Take 2 Tablets by mouth 2 times daily. 09/06/2023 Active LORazepam (ATIVAN) 0.5 mg tablet Take 1 Tablet by mouth every 8 hours as needed for Anxiety. 10/26/2022 Active Social History Tobacco Use Types Packs/Day Years Used Date Smoking Tobacco: Never Smokeless Tobacco: Never Comments Unknown Sex and Gender Information Value Date Recorded Sex Assigned at Not on file Legal Sex Female 18:48 EST Gender Identity Female 10/13/2023 11:04 EST Sexual Orientation Not on file Last Filed Vital Signs Vital Sign Reading Time Taken Comments Blood Pressure 119/79 10/13/2023 1557 EST Pulse 87 10/13/2023 1557 EST Temperature - - Respiratory Rate - - Oxygen Saturation - - Inhaled Oxygen Concentration - - Weight 84.8 kg (186 lb 14.4 oz) 10/13/2023 1557 EST Height 177.8 cm (5' 10) 10/13/2023 1557 EST Body Mass Index 26.82 10/13/2023 1557 EST Functional Status * Because of a physical, mental, or emotional condition, does this person have difficulty doing errands alone such as visiting a doctor's office or shopping? Answer Date of Assessment Author No 10/13/2023 15:53 EST Mental Status * Because of a physical, mental, or emotional condition, does this person have serious difficulty concentrating, remembering, or making decisions? Answer Entry Date Author No 10/13/2023 15:53 EST Plan of Treatment Not on [place] [address] [place] [address] Care Teams Antichecking Iron Worker Relationship Specialty Start Date End Date Ed Willson APRN [address] [place] [address] [address] [place] [address] PCP - General 10/13/23
--- OUTSIDE RECORDS SUMMARY | 2024-09-08 15:32 | XMS_ITS | Encounter Summary ---
Author Organization [facility] [address] Care Team Providers Care Customer Support Technician Name Role Phone Ed Willson APRN Primary Care Provider [phone] Reason for Referral * Consultation (Routine) - Specialty Diagnoses / Procedures Referred By Chela huizar Referred To Contact Dermatology Diagnoses Encounter for screening for malignant neoplasm of skin Ed Willson APRN [address] [place] [address] [place] [address] [facility] Dermatology [address] [place] [address] Referral ID Status Reason Start Date Expiration Date V isits Requested Visits Authorized [id number] Consult, Test & Treat PCP Updated and/or Approved 02/25/2024 08/27/2024 6 6 Encounter Details Date Type Department Care Team (Latest Contact Info) Description 03/05/2024 Transcribe Orders eDH Incoming Referrals [phone] Ed Willson APRN [address] [place] [address] [place] [address] Encounter for screening for malignant neoplasm of skin Social History Tobacco Use Types Packs/Day Years [...] 8:20 AM EST Office Visit Dermatology at [facility] [address] [place] [address] Scheduled Referrals Name Type Priority Associated Diagnoses Order Schedule Referral to Dermatology Outpatient Referral Routine Encounter for screening for malignant neoplasm of skin Ordered: 03/05/2024 documented as of this encounter Visit Diagnoses Diagnosis Encounter for screening for malignant neoplasm of skin Screening for malignant neoplasm of the skin documented in this encounter Care Teams Customer Support Technician Relationship Specialty Start Date End Date Ed Willson APRN [address] [place] [address] [place] [phone] PCP - General 08/20/11 documented as of this encounter
--- OUTSIDE RECORDS SUMMARY | 2024-09-08 15:32 | XMS_ITS | Encounter Summary ---
Author [facility] [place] [address] Care Team Providers Care Skiver Box Toe Name Role Phone Ed Willson APRN Primary Care Provider [phone] Encounter Details Date Type Department Care Team (Late st Contact Info) Description 01/02/2016 Telephone Obstetrics [place] [phone] Tierney Alves MD Social History Tobacco Use Types Packs/Day Years Used Date Smoking Tobacco: Never Alcohol Use Standard Drinks/Week Comments Yes 2 (1 standard drink = 0.6 oz pur e alcohol) Sex and Gender Information Value Date Recorded Sex Assigned at Not on file Gender Identity Not on file Sexual Orientation Not on file documented as of this encounter Miscellaneous Notes * Telephone Encounter - Tierney Alves MD - 01/02/2016 10:02 AM EDT Telephone Call Denise Best is a 50 y.o. who had a follow up US demonstrating that her left ovary was still present. Normal follicles present. Discussed results with the patient. TIERNEY ALVES MD PGY3 01/02/2016 * Telephone Encounter - Tierney Alves MD - 01/02/2016 9:15 AM EDT Telephone Call Called Denise Best to discuss US results. Left message for her to call back. Her left ovary is still in place with normal follicles present, measuring 2.5cm x 3cm. TIERNEY ALVES MD PGY3 documented in this encounter Plan of Treatment Upcoming Encounters Date Type Department Care Team (Late st Contact Info) Description 09/22/2024 8:20 AM EST Office Visit Dermatology at [facility] [address] [place] [address] documented as of this encounter Visit Diagnoses Not on filedocumented in this encounter Care Teams Skiver Box Toe Relationship Specialty Start Date End Date Ed Willson APRN [address] [place] [address] [place] [phone] PCP - General 08/20/11 documented as of this encounter
--- OUTSIDE RECORDS SUMMARY | 2024-09-08 15:32 | XMS_ITS | Encounter Summary ---
Author Organization [facility] Address [address] [place] [address] Care Team Providers Care Fill Technician Name Role Phone Unknown, Provider Primary Care Provider Unava ilable Encounter Details Date Type Department Care Team (Latest Contact Info) Description 10/11/2015 9:51 EST - 10/11/2015 23:59 EST Hospital Encounter [address] [address] Unknown, Provider, Discharge Disposition: Home or Self [...] Code Departure Means Destination Home or Self Nursing Home documented in this encounter Plan of Treatment Not on file documented as of this encounter Visit Diagnoses Not on filedocumented in this encounter Care Teams Fill Technician Relationship Specialty Start Date End Date Unknown, ProviderMD PCP - General 11/15/09 10/12/23 documented as of this encounter
--- OUTSIDE RECORDS SUMMARY | 2024-09-08 15:32 | XMS_ITS | Encounter Summary ---
Author Organization [facility] Address [address] [place] [address] Care Team Providers Care Home Health Travel Pt Name Role Phone Unknown, Provider Primary Care Provider Unava ilable Encounter Details Date Type Department Care Team (Late st Contact Info) Description 11/09/2009 Results Only [facility] Laboratory Services - [facility] [place] [address] [place] [id number] Unknown, Provider, Social History Tobacco Use Types Packs/Day Years [...] Procedure Name Priority Date/Time Associated Diagnosis Comments HPV DETECTION, HIGH RISK TYPES Routine 11/09/2009 14:22 EDT CYTOPATHOLOGY Routine 11/09/2009 0:00 EDT documented in this encounter Results * HUMAN PAPILLOMA VIRUS DNA TEST (11/09/2009 14:22 EDT) Specimen Description Cervix, ThinPrep vial [facility] Result Negative for HPV types 16, 18, 31, 33, 35, 39, 45, 51, 52, 56, 58, 59, and 68. [facility] Report Status Final 11/23/2009 [facility] 11/09/2009 14:2 2 EDT 11/21/2009 14:22 EDT us Reji Lux [facility] CLERICAL CAR CHECKER MICROBIOLOGY - GENERAL ORDERABL ES Final Result [facility] [address] [place] [address] * CYTOPATHOLOGY (11/09/2009 0:00 EDT) Pathology Report: CYTOPATHOLOGY REPORT ? Reports generated via electronic interface contain original data; ? however they are lacking the format of the original report. ? Caution should be taken when reading/interpreti ng unformatted reports. ? Name: ? DENISE ORELLANA ? Accession #: ? [id number] ? : ? 1965 (Age: 44) ??F ?Collect Date: ? 11/09/2009 ? Location: ? [facility] ? Receive Date: ? 11/15/2009 ? Provider: ?REJI O [facility] PARTS RUNNER ? Copy to: ? Specimen/Source: ?Pap Test, Cervix, ThinPrep Imaging System with manual ?? evaluation ? Last Menstrual Period: ? 03.09.10 ? Other: ? HPVDX - HPV testing requested regardless of diagnosis on current ThinPrep Pap ?? test. ? SPECIMEN ADEQUACY ? Satisfactory for Evaluation ? - transformation zone component present ? GENERAL CATEGORIZATION ? Negative for Intraepithelial Lesion or Malignancy ? INTERPRETATION ? Fungal organisms present morphologically consistent with Kassandra species. ? Document reviewed and electronically signed by: ? Sera E. Michaelle, [place](ASCP) ? Report Date: ??11/21/2009 11:23 ? End of Report ? [facility] 11/09/2009 11/15/2009 us Provider Unknown MD PATHOLOGY ORDERABLES Final R esult [facility] [address] [place] [address] documented in this encounter Visit Diagnoses Not on filedocumented in this encounter Care Teams Home Health Travel Pt Relationship Specialty Start Date End Date Unknown, Provider, PCP - General 11/15/09 10/12/23 documented as of this encounter
--- OUTSIDE RECORDS SUMMARY | 2024-09-08 15:32 | XMS_ITS | Clinical Summary ---
Author Organization [facility] Address [address] [place] [address] Care Team Providers Care Agricultural Produce Washer Name Role Phone Ed Willson APRN Primary Care Provider [phone] Allergies No known active allergies Medications citalopram [...] 11:04 EST Sexual Orientation Not on file Obstetrics History Last Filed Vital Signs Vital Sign Reading Time Taken Comments Blood Pressure 119/79 10/13/2023 1557 EST Pulse 87 10/13/2023 1557 EST Temperature - - Respiratory Rate - - Oxygen Saturation - - Inhaled Oxygen Concentration - - Weight 84.8 kg (186 lb 14.4 oz) 10/13/2023 1557 EST Height 177.8 cm (5' 10) 10/13/2023 1557 EST Body Mass Index 26.82 10/13/2023 1557 EST Plan of Treatment Health Maintenance Due Date Last Done Comments Hepatitis C Screen 1965 Hepatitis B Vaccine (1 of 3 - 19+ 3-dose series) 01/19 COVID-19 Vaccine (2023- season) 2024 Insurance [facility] [place] [address] Care Teams Agricultural Produce Washer Relationship Specialty Start Date End Date Ed Willson APRN [address] [place] [address] [facility] [address] [place] [address] PCP - General 10/13/23
--- OUTSIDE RECORDS SUMMARY | 2024-09-08 15:32 | XMS_ITS | Encounter Summary ---
Author Organization [facility] Address [address] [place] [address] Care Team Providers Care Tax Investigator Name Role Phone Unknown, Provider Primary Care Provider Unava ilable Encounter Details Date Type Department Care Team (Late st Contact Info) Description 10/11/2015 Results Only [facility]- [facility] [phone] Mary Perez MD [address] [place] [address] [address] [place] [address] Social History Tobacco Use Types [...] Date/Time Associated Diagnosis Comments SURGICAL PATHOLOGY Routine 10/11/2015 9:40 EST documented in this encounter Results * SURGICAL PATHOLOGY (10/11/2015 9:40 EST) Pathology Report: SURGICAL PATHOLOGY REPORT Reports generated via electronic interface contain original data; however they are lacking the format of the original report. Caution should be taken when reading/interpret ing unformatted reports. Name: ? DENISE ORELLANA ? Accession #: ? [id number] ? : ? 1965 (Age: 50) ??F ? Collect Date: ? 10/11/2015 ? Location: ? [facility] ? Receive Date: ? 10/13/2015 ? Provider: MARY PEREZ MD Copy to: ? Final Pathologic Diagnosis: ENDOMETRIUM, CURETTAGE: - ??Proliferative endometrium with tubal metaplasia, eosinophilic metaplasia, focally disordered growth pattern and extensive glandular and stromal breakdown. - ??Fragments of benign endocervical tissue. Document reviewed and electronically signed by: DANIELA SAENZ MD Report ??Date: 10/16/2015 16:13 By the signature above, the attending physician certifies that he/she has personally conducted a gross and/or microscopic examination of the described specimens and rendered or confirmed the above diagnosis. Specimen(s) Received: Endometrium Clinical History: Abnormal uterine bleeding; LMP: 10/03/15 Gross Description: ? Received in formalin labelled with proper patient identification (initials B, C) and endometrium are soft callejas and brown tissues with admixed blood clot and mucus aggregating 1.5 x 1.5 x 0.6 cm. Entirely submitted in 1 and 2 Roxie Quiñonez 10/13/2015 1:28 PM End of Report [facility] 10/11/2015 9:40 EST 10/13/2015 9:40 EST us Mary Perez MD PATHOLOGY ORDERABLES Final Resul t [facility] [address] [place] [address] documented in this encounter Visit Diagnoses Not on filedocumented in this encounter Care Teams Tax Investigator Relationship Specialty Start Date End Date Unknown, Provider, PCP - General 11/15/09 10/12/23 documented as of this encounter
--- OUTSIDE RECORDS SUMMARY | 2024-09-08 15:32 | XMS_ITS | Encounter Summary ---
Author Organization [facility] Address [address] [place] [address] Care Team Providers Care Hand Bunch Maker Name Role Phone Unknown, Provider Primary Care Provider Ed Yin APRN Primary Care Provider [phone] Reason for Visit * Reason Onset Date Comments Appointment Related 07/17/2023 Encounter Details Date Type Department Care Team (Late st Contact Info) Description 07/17/2023 Telephone [facility] Endocrinology - [address] [address] Justin Alvarado MD [address] [place] [phone] Appointment Related Social History Tobacco Use Types Packs/Day Years Used Date Smoking Tobacco: Never Assessed Comments Unknown Sex and Gender Information Value Date Recorded Sex Assigned at Not on file Legal Sex Female 18:48 EST Gender Identity Female 10/13/2023 11:04 EST Sexual Orientation Not on file documented as of this encounter Miscellaneous Notes * Telephone Encounter - Lucinda Mahajan - 08/26/2023 1531 EST Left voicemail offering patient sooner appointment on 08-27-[address] Alvarado. [facility], if patient accepts appointment please schedule. If patient cannot accept sooner appointment, or if it is no longeravailable in [facility] please inform them we will continue to reach out as other openings become available * Telephone Encounter - Marylu Infante - 07/17/2023 1327 EST Left voicemail offering patient sooner in office appointment on 07/17/23 @ [address] Alvarado. . Patient is on the wait list. [facility], if patient accepts appointment please schedule. If patient cannot accept sooner appointment, or if it is no longer available in Epic please inform them we will continue to reach out as other openings become available documented in this encounter Plan of Treatment Not on file documented as of this encounter Visit Diagnoses Not on filedocumented in this encounter Care Teams Hand Bunch Maker Relationship Specialty Start Date End Date Unknown, Provider, PCP - General 11/15/09 10/12/23 Ed Willson APRN [address] [place] [address] [address] [place] [address] PCP - General 10/13/23 documented as of this encounter
--- OUTSIDE RECORDS SUMMARY | 2024-09-08 15:32 | XMS_ITS | Encounter Summary ---
Author Organization [facility] Address [address] [place] [address] Care Team Providers Care Heel Slicker Name Role Phone Unknown, Provider Primary Care Provider Ed Yin APRN Primary Care Provider [phone] Encounter Details Date Type Department Care Team (Late st Contact Info) Description 04/15/2023 Lab Requisition [facility] Pathology & Laboratory Medicine - [facility] [address] [place] [address] Outr Resulting Lab, Provider Social History Tobacco [...] Date/Time Associated Diagnosis Comments T3 FREE Routine 04/15/2023 14:47 EDT documented in this encounter Results * T3 FREE (04/15/2023 14:47 EDT) T3, Free 4.1 2.8 - 5.3 pg/mL 04/15/2023 22:23 EDT [facility] Blood VENOUS BLOOD / Unknown 04/15/2023 14:47 EDT 04/15/2023 21:41 EDT us Provider Outr Resulting Lab CHEMISTRY & BLOOD GA S ORDERABLES Final Result [facility] [address] [place] [address] documented in this encounter Visit Diagnoses Not on filedocumented in this encounter Care Teams Heel Slicker Relationship Specialty Start Date End Date Unknown, Provider, PCP - General 11/15/09 10/12/23 Ed Willson, TIMBER TREATMENT PLANT OPERATOR [address] [place] [address] [address] [place], [place] [address] PCP - General 10/13/23 documented as of this encounter
--- OUTSIDE RECORDS SUMMARY | 2024-09-08 15:32 | XMS_ITS | Encounter Summary ---
Author Organization [facility] Address [address] [place] [address] Care Team Providers Care Communication Studies Professor Name Role Phone Ed Willson APRN Primary Care Provider [phone] Encounter Details Date Type Department Care Team (Late st Contact Info) Description 03/23/2024 Lab Requisition [facility] Pathology & [place] [address] Outr Resulting Lab, Provider Social History Tobacco [...] Associated Diagnosis Comments VITAMIN D (25,OH) Routine 03/23/2024 12: 53 EDT T3 FREE Routine 03/23/2024 12:53 EDT documented in this encounter Results * (ABNORMAL) VITAMIN D (25,OH) (03/23/2024 12:53 EDT) 25OH Vitamin D Tot 29(L) 30 - 100 ng/mL 03/24/2024 11:16 EDT [facility] Comment: Vitamin D 25,OH Interpretive Ranges: Deficiency: ??<10.0 ng/mL Insufficiency: ??10.0 - 30.0 ng/mL Sufficiency: ??30.0 - 100.0 ng/mL Toxicity: ??>100.0 ng/mL Blood VENOUS BLOOD / Unknown 03/23/2024 12:53 EDT 03/23/2024 21:30 EDT Provider Outr Resulting Lab CHEMISTRY & BLOOD GA S ORDERABLES Final Result Performing Organization Address City/[facility]/ZIP Co de Phone Number [facility] [address] [place] [address] * T3 FREE (03/23/2024 12:53 EDT) T3, Free 4.2 2.8 - 5.3 pg/mL 03/23/2024 22:04 EDT [facility] Blood VENOUS BLOOD / Unknown 03/23/2024 12:53 EDT 03/23/2024 21:30 EDT Provider Outr Resulting Lab CHEMISTRY & BLOOD GA S ORDERABLES Final Result Performing Organization Address City/[facility]/ZIP Co de Phone Number [facility] [address] [place] [address] documented in this encounter Visit Diagnoses Not on filedocumented in this encounter Care Teams Communication Studies Professor Relationship Specialty Start Date End Date Ed Willson APRN [address] [place] [address] [address] [place] [address] PCP - General 10/13/23 documented as of this encounter
--- OUTSIDE RECORDS SUMMARY | 2024-09-08 15:32 | XMS_ITS | Clinical Summary ---
Author Organization [facility] [place] [address] Care Team Providers Care Employment Adjudicator Name Role Phone WillsonEd APRN Primary Care Provider [phone] Allergies Active Allergy Reactions Criticality Noted Date Comments Penicillins Rash 12/22/2015 Perioral redness, no shortness of breath or hives Medications No known medications Active Problems Problem Noted Date Diagnosed Date Thyroid nodule 08/29/2011 Neck pain 08/29/2011 Pelvic pain Endometriosis Family History Medical History Relation Comments Cervical Cancer Mother Relation Status Comments Mother Social History Tobacco Use Types Packs/Day Years Used Date Smoking Tobacco: Never Alcohol Use Standard Drinks/Week Comments Yes 2 (1 standard drink = 0.6 oz pur e alcohol) Sex and Gender Information Value Date Recorded Sex Assigned at Not on file Gender Identity Not on file Sexual Orientation Not on file Last Filed Vital Signs Vital Sign Reading Time Taken Comments Blood Pressure 118/78 12/22/2015 8:53 AM EDT Pulse - - Temperature - - Respiratory Rate - - Oxygen Saturation - - Inhaled Oxygen Concentration - - Weight 69.2 kg (152 lb 9.6 oz) 12/22/2015 8:53 A M EDT Height - - Body Mass Index - - Plan of Treatment Upcoming Encounters Date Type Department Care Team (Late st Contact Info) Description 09/22/2024 8:20 AM EST Office Visit Dermatology at [facility] [address] [place] [phone] Health Maintenance Due Date Last Done Comments CT Colonography 1965 Colonoscopy 1965 Colorectal Cancer Screening 1965 FIT DNA 1967 FIT 1965 Sigmoidoscopy (10 year) with FIT yearly 1965 Sigmoidoscopy 1965 HIV screen 1985 Hepatitis C Screening 1985 Hepatitis B vaccine (0-59 yrs) (1) 1986 Tetanus/Diphtheria/Pertussis Vaccines (1 - Tdap) 1986 HPV test 1997 PAP Smear 1997 Breast Cancer Share Decision Needed 2007 Breast Cancer screening 2007 Pneumoccocal Vaccine: 50+ (1 of 1 - PCV) 2017 Zoster vaccine (1 of 2) 2017 Advance Directive 2022 Covid-19 Vaccine (3 - season) 2024, 10/18/2020 Influenza (Flu) vaccine (1 o f 1 - Influenza standard series) 04/11/2024 Care Teams Employment Adjudicator Relationship Specialty Start Date End Date Ed Willson APRN [address] [facility] [place] [phone] PCP - General 08/20/11
[2024-09-08 15:41] LABS: Abs Immature Grans 0.03 10^3/uL (0.0-0.06); Absolute Basophil Count 0.06 10^3/uL (0.0-0.2); Absolute Eosinophil Count 0.26 10^3/uL (0.0-0.7); Absolute Lymphocyte Count 2.08 10^3/uL (1.2-3.4); Absolute Monocyte Count 0.69 10^3/uL (0.1-0.8); Absolute Neutrophil Count 4.69 10^3/uL (1.2-6.7); Basophils % 0.8 %; Eosinophils % 3.3 %; HCT 43.1 % (36.0-46.0); HGB 13.8 g/dL (11.2-15.7); Immature Grans % 0.4 %; Lymphocytes % 26.6 %; MCH 29.4 pg (27.0-33.0); MCV 92 fL (80-95); MPV 10.6 fL (8.0-11.0); Monocytes % 8.8 %; Neutrophils % 60.1 %; Platelet Count 243 10^3/uL (130-400); RBC 4.69 10^6/uL (3.93-5.22); RDW 12.3 % (11.7-14.6); RDW-SD 41.5 fL; WBC 7.81 10^3/uL (4.4-10.8)
[2024-09-08 16:48] LABS: ALT 24 U/L (14-59); AST 16 U/L (15-37); Albumin 4.4 g/dL (3.4-5.0); Alkaline Phosphatase 113 U/L (46-116); Anion Gap 8.1 mmol/L (3-11); BUN 25 mg/dL (7-18); Bilirubin, Total 0.45 mg/dL (0.2-1.0); CO2 28.9 mmol/L (21.0-32.0); Calcium 9.6 mg/dL (8.5-10.1); Chloride 105 mmol/L (98-107); Estimated GFR 65.71 (mL/min/1.73m2); Glucose 101 mg/dL (74-106); Potassium 4.3 mmol/L (3.5-5.1); Sodium 142 mmol/L (136-145); TSH 1.19 uIU/mL (0.36-3.74); Total Protein 7.8 g/dL (6.4-8.2)
[2024-09-08 21:56] LABS: IgE 5 IU/mL (<158)
== END 2024-09-08 15:31 | disposition home or self-care (01) ==
LOC: LBN 15:30
PROVIDERS: PCP Nurse Practitioner Family; Visit Provider Physician Assistant Surgical
DX: R06.00 Dyspnea, unspecified (principal)
CPT/HCPCS: 80053; 82785; 84443; 85025